=== PATIENT | female | born 1995 | race Caucasian/White ===

== ENCOUNTER 2022-03-18 21:15 | Emergency (ER) | payer SELFPAY ==
[~2022-03-18] VITALS: Ht 165.1 cm; Wt 101.9 kg
[2022-03-18 21:30] VITALS: BP 139/85
--- NOTE | 2022-03-18 21:51 | ED Neurological Problem ---
General Chief Complaint: Neurological Problems Stated Complaint: LEFT SIDE FACE AND BODY NUMBNESS,TIGHTNESS IN CHES Source: patient Exam Limitations: no limitations (BHAVNA HERNANDEZ) History of Present Illness Date Seen by Provider: Mar 18, 2022 Time Seen by Provider: 21:48 Initial Comments Patient is a 26-year-old female history of GERD, Anxiety, Depression, Migraines, central sleep apnea, who presents to the ED with little left-sided chest pain, left-sided numbness and weakness over the past 3 days. She reports acute onset. Pain to the left side of her head rates 8 out of 10. She reports numbness and tingling to the left arm and left leg developed when her head pain started. Denies worse headache of her life. Patient states she was diagnosed with COVID early February. She states she had some flulike symptoms but that continued to improve and then she started getting short of breath with a cough. She Was placed on a taper steroid and scheduled to take her last dose tomorrow. She is not currently on antibiotics. She does have a history of migraines and is typically towards the front part of her head. She states today's head pain feels different. She has seen 2 neurologists and receives Botox for her migraines. She reports nausea without vomiting or diarrhea. She developed left-sided chest pain that feels deep. She states she does feel short of breath but extremely tired and fatigued. She reports twitching to the left side of her face and left eye. Denies of any visual loss. Not concern for . Denies of any urinary symptoms, fever, neck pain, vomiting, diarrhea, difficulty speaking, notable facial droop, syncope. Patient states with her other migraine she has had some numbness and tingling in her feet but does not typically last this long. She has associated photophobia with todays head pain. (BHAVNA HERNANDEZ) Allergies and Home Medications Allergies Coded Allergies: hydrocodone (Verified Allergy, Unknown, 03/18/22) ondansetron (Verified Allergy, Unknown, 03/18/22) topiramate (Verified Allergy, Unknown, 03/18/22) Patient Home Medication List Home Medication List Reviewed: Yes (BHAVNA HERNANDEZ) Review of Systems Review of Systems Constitutional: No chills, No diaphoresis Eyes: Denies Drainage, Denies Decreased Acuity Ears, Nose, Mouth, Throat: denies ear pain, denies ear discharge Respiratory: cough; No dyspnea on exertion Musculoskeletal: No back pain, No joint pain Skin: No change in color, No change in hair/nails (BHAVNA HERNANDEZ) All Other Systems Reviewed Negative Unless Noted: Yes (BHAVNA HERNANDEZ) Physical Exam Vital Signs Vital Signs - First Documented 03/18/22 21:30 Temp 36.0 Pulse 109 Resp 16 B/P (MAP) 139/85 (103) Pulse Ox 97 O2 Delivery Room Air (CLAY,YURI K DO) Vital Signs Capillary Refill : (BHAVNA HERNANDEZ) Height, Weight, BMI Height: '" Weight: lbs. oz. kg; BMI Method: General Appearance: WD/WN, no apparent distress HEENT: PERRL/EOMI, normal ENT inspection, TMs normal, pharynx normal Neck: non-tender, full range of motion, supple, normal inspection Gastrointestinal: normal bowel sounds, non tender, soft, no organomegaly Back: normal inspection, no CVA tenderness, no vertebral tenderness Extremities: non-tender, normal inspection, no pedal edema Neurologic/Psychiatric: pail bailer II-XII nml as tested, no motor/sensory deficits, alert, normal mood/affect (BHAVNA HERNANDEZ) Stroke Onset of Symptoms Date of Onset of Symptoms: Mar 16, 2022 Time of Symptom Onset: 13:00 Onset of Symptoms: Yes (BHAVNA HERNANDEZ) NIH Stroke Scale Assessment Select: Initial Level of Consciousness: 0=Alert (0), Level of Consciousness- Questions: 0=Answers both month/age (0), LOC Commands: 0=Performs both tasks (0), Gaze: Normal (0), Visual Culp: 0=No visual loss (0), Facial Movement (Facial Paresis): 0=Normal symmetrical mnt (0), Motor Function-Arms Right: 0=No drift (0), Motor Function-Arms Left: 1=Drift (1), Motor Function-Legs Right: 0=No drift (0), Motor Function-Legs Left: 1=Drift (1), Limb Ataxia: 1=Present in one limb (1), Sensory: 0=Normal:no loss (0), Best Language: 0=No aphasia (0), Dysarthria: 0=Normal (0), Extinction & Inattention: 0=No abnormality (0), Total: 3 Progress/Results/Core Measures Results/Orders Lab Results Laboratory Tests Test 03/18/22 21:50 03/18/22 22:00 03/18/22 22:43 Range/Units Urine Color YELLOW Urine Clarity CLEAR Urine pH 5.0 5-9 Urine Specific Harmony >=1.030 1.016-1.022 Urine Protein NEGATIVE NEGATIVE Urine Glucose (UA) NEGATIVE NEGATIVE Urine Ketones NEGATIVE NEGATIVE Urine Nitrite NEGATIVE NEGATIVE Urine Bilirubin NEGATIVE NEGATIVE Urine Urobilinogen 0.2 < = 1.0 MG/DL Urine Leukocyte Esterase NEGATIVE NEGATIVE Urine RBC (Auto) NEGATIVE NEGATIVE Urine RBC NONE /HPF Urine WBC 2-5 /HPF Urine Squamous Epithelial Cells 5-10 /HPF Urine Crystals NONE /LPF Urine Bacteria FEW H /HPF Urine Casts PRESENT /LPF Urine Hyaline Casts 5-10 H /LPF Urine Mucus SMALL H /LPF Urine Culture Indicated YES Urine Test NEGATIVE NEGATIVE Prothrombin Time 12.3 12.2-14.7 SEC INR Comment 0.9 0.8-1.4 Activated Partial Thromboplast Time 25 24-35 SEC D-Dimer <= 0.27 0.00-0.49 UG/ML Sodium Level 141 135-145 MMOL/L Potassium Level 4.8 3.6-5.0 MMOL/L Chloride Level 109 H 98-107 MMOL/L Carbon Dioxide Level 17 L 21-32 MMOL/L Anion Gap 15 H 5-14 MMOL/L Blood Urea Nitrogen 20 H 7-18 MG/DL Creatinine 0.96 0.60-1.30 MG/DL Estimat Glomerular Filtration Rate 84 BUN/Creatinine Ratio 21 Glucose Level 115 H 70-105 MG/DL Calcium Level 9.2 8.5-10.1 MG/DL Corrected Calcium 9.3 8.5-10.1 MG/DL Magnesium Level 2.2 1.6-2.4 MG/DL Total Bilirubin 0.2 0.1-1.0 MG/DL Aspartate Amino Transf (AST/SGOT) 16 5-34 U/L Alanine Aminotransferase (ALT/SGPT) 8 0-55 U/L Alkaline Phosphatase 90 40-136 U/L Troponin I < 0.028 <0.028 NG/ML Total Protein 7.7 6.4-8.2 GM/DL Albumin 3.9 3.2-4.5 GM/DL White Blood Count 17.7 H 4.3-11.0 10^3/uL Red Blood Count 4.17 3.80-5.11 10^6/uL Hemoglobin 12.1 11.5-16.0 g/dL Hematocrit 38 35-52 % Mean Corpuscular Volume 92 80-99 fL Mean Corpuscular Hemoglobin 29 25-34 pg Mean Corpuscular Hemoglobin Concent 32 32-36 g/dL Red Cell Distribution Width 14.3 10.0-14.5 % Platelet Count 535 H 130-400 10^3/uL Mean Platelet Volume 9.5 9.0-12.2 fL Immature Granulocyte % (Auto) 1 % Neutrophils (%) (Auto) 79 H 42-75 % Lymphocytes (%) (Auto) 13 12-44 % Monocytes (%) (Auto) 7 0-12 % Eosinophils (%) (Auto) 0 0-10 % Basophils (%) (Auto) 1 0-10 % Neutrophils # (Auto) 14.0 H 1.8-7.8 10^3/uL Lymphocytes # (Auto) 2.3 1.0-4.0 10^3/uL Monocytes # (Auto) 1.2 H 0.0-1.0 10^3/uL Eosinophils # (Auto) 0.0 0.0-0.3 10^3/uL Basophils # (Auto) 0.1 0.0-0.1 10^3/uL Immature Granulocyte # (Auto) 0.2 H 0.0-0.1 10^3/uL Neutrophils % (Manual) 83 % Lymphocytes % (Manual) 14 % Monocytes % (Manual) 3 % Band Neutrophils % Blood Morphology Comment NORMAL (YURI WILLIAMSON DO) Medications Given in ED Current Medications Medications Dose Ordered Sig/Belinda Route Start Time Stop Time Status Last Admin Dose Admin Diphenhydramine HCl 25 mg ONCE ONCE IVP 03/18/22 22:45 03/18/22 22:46 DC 03/18/22 23:14 25 MG Iohexol 75 ml ONCE ONCE IV 03/19/22 00:30 03/19/22 00:42 DC 03/19/22 00:31 75 ML Ketorolac Tromethamine 30 mg ONCE ONCE IVP 03/18/22 22:45 03/18/22 22:46 DC 03/18/22 23:13 30 MG Prochlorperazine Edisylate 10 mg ONCE ONCE IV 03/18/22 22:45 03/18/22 22:46 DC 03/18/22 23:14 10 MG Sodium Chloride 100 ml ONCE ONCE IV 03/19/22 00:30 03/19/22 00:42 DC 03/19/22 00:31 80 ML (YURI WILLIAMSON DO) Vital Signs/I&O 03/18/22 21:30 Temp 36.0 Pulse 109 Resp 16 B/P (MAP) 139/85 (103) Pulse Ox 97 O2 Delivery Room Air (YURI WILLIAMSON DO) Progress Progress Note : Progress Note 2300--ASSUMED CARE FROM TEZ HERNANDEZ. CT ANGIOGRAM HEAD/NECK PENDING AT THIS TIME. PT IS SYMPTOM-FREE AT THIS TIME. 0110--PT SIGNING OUT AMA, CT REPORT IS PENDING. PT STATES SHE IS TIRED OF WAITING AND WANTS TO GO HOME, PT IS SYMPTOM-FREE. AMA PAPERS SIGNED. (YURI WILLIAMSON DO) Comment Sinus tachycardia, 107 bpm, QRS duration 89 MS, QTc 389 MS (BHAVNA HERNANDEZ) Departure Communication (PCP) Patient is complaining of left-sided numbness and weakness over the past 3 days acute onset. Patient does not have significant risk factors for stroke. History of central sleep apnea, GERD, migraines. She also has left-sided chest pain. Patient is not a tPA candidate. EKG without evidence of ST elevation or depression. Chest x-ray was unremarkable. Cardiac work-up unremarkable. Patient had an elevated white blood count at 17. She is currently on steroids. Does not appear to be infection related to however recently recovering from COVID. Urinalysis was negative for infection. Chest x-ray was negative for pneumonia. She had COVID early February and had some residual symptoms over the past month and states she has 1 day worth of prednisone that she has been taking for a continuous cough. Checks x-ray did not noted any pneumothorax. Patient had an NIH of 3 secondary to a subtle drift to her left upper and left lower extremity. Very minimal weakness. No facial droop, slurred speech. She is alert and orient x3. Had some mild ataxia to the left limb. Initial CT scan was unremarkable. Due to her current complaints CT angio of the head and neck was ordered. She did have a negative D-dimer. History of migraines but states her migraine typically is located to the front part of her head but she does have some numbness and tingling that does develop in her lower extremities bilateral with previous migraines. During her stay she started having numbness to her right leg. Not confident that this is a stroke however due to her initial complaints I do recommend further with CT angio head and neck. She agreed. Patient was discussed with Dr. WILLIAMSON at 11 PM who took over care pending results. She was given a migraine cocktail if this could be result of a migrain e. The head pain developed at the same time located to the left side of her head. Denies worst headache of her life. She does follow to neurologist and states she has failed multiple medication and receives Botox but has not received Botox for some time. (BHAVNA HERNANDEZ) Impression Primary Impression: Left against medical advice Disposition: 07 AGAINST MEDICAL ADVICE Condition: Against Medical Advice Departure-Patient Inst. Referrals: [facility] (PCP/Family) Primary Care Physician BHAVNA HERNANDEZ Mar 18, 2022 21:50 YURI WILLIAMSON DO Mar 19, 2022 01:09
[2022-03-18 21:57] LABS: BILIRUBIN,URINE NEGATIVE (NEGATIVE); CLARITY,URINE CLEAR; COLOR,URINE YELLOW; GLUCOSE, URINE (UA) NEGATIVE (NEGATIVE); KETONES,URINE NEGATIVE (NEGATIVE); LEUKOCYTE ESTERASE ,URINE NEGATIVE (NEGATIVE); NITRITE,URINE NEGATIVE (NEGATIVE); PROTEIN,URINE NEGATIVE (NEGATIVE)
[2022-03-18 22:21] LABS: ALBUMIN 3.9 GM/DL (3.2-4.5); CHLORIDE 109 MMOL/L (98-107); POTASSIUM 4.8 MMOL/L (3.6-5.0); SODIUM 141 MMOL/L (135-145)
[2022-03-18 22:22] LABS: BACTERIA,URINE FEW /HPF
[2022-03-18 22:23] LABS: CALCIUM 9.2 MG/DL (8.5-10.1)
[2022-03-18 22:24] LABS: GLUCOSE 115 MG/DL (70-105); TOTAL PROTEIN 7.7 GM/DL (6.4-8.2)
[2022-03-18 22:25] LABS: CARBON DIOXIDE 17 MMOL/L (21-32)
[2022-03-18 22:26] LABS: BILIRUBIN,TOTAL 0.2 MG/DL (0.1-1.0)
--- NOTE | 2022-03-18 22:26 | Diagnostic Imaging Report ---
INDICATION: Chest pain. COMPARISON: None. FINDINGS: Single frontal view of the chest demonstrates normal heart size and pulmonary vascularity. The lungs are well aerated and clear. No large pleural effusion or pneumothorax is seen. The visualized osseous structures show no acute abnormalities. IMPRESSION: No acute cardiopulmonary process. Dictated by: Dictated on workstation # [id number]
[2022-03-18 22:27] LABS: ALKALINE PHOSPHATASE 90 U/L (40-136); CREATININE SERUM 0.96 MG/DL (0.60-1.30); GFR ESTIMATED 84
[2022-03-18 22:29] LABS: BUN/CREATININE RATIO 21
[2022-03-18 22:30] LABS: ALANINE AMINOTRANSFERASE 8 U/L (0-55); MAGNESIUM 2.2 MG/DL (1.6-2.4)
--- NOTE | 2022-03-18 22:34 | Diagnostic Imaging Report ---
INDICATION: Migraine. Neural deficit. TECHNIQUE: Routine non contrast-enhanced axial images were obtained from the skull base to the vertex. Auto Exposure Controls were utilized during the CT exam to meet ALARA standards for radiation dose reduction. COMPARISON: None. FINDINGS: The ventricles and cortical sulci are normal in size and contour. There is no midline shift or mass-effect. No acute intra-axial hemorrhage is seen. There are no abnormal areas of increased or decreased density to suggest acute hemorrhage or edema. No extra-axial masses or collections are present. The bony calvarium is intact. The visualized paranasal sinuses are unremarkable. The mastoid air cells are clear. IMPRESSION: No acute intracranial abnormality. No CT evidence of mass, acute infarct or intracranial hemorrhage. Report was called to the [place] [facility] at 10:34 p.m., by irene. Dictated by: Dictated on workstation # [id number]
[2022-03-18] MEDS ORDERED: NS IV 1000 ML 1,000 ML IV STA (22:37)
[2022-03-18 22:41] LABS: FIBRIN DEGRADATION PRODUCTS <= 0.27 UG/ML (0.00-0.49); INR 0.9 (0.8-1.4); PARTIAL THROMBOPLASTIN TIME 25 SEC (24-35); PROTHROMBIN TIME PATIENT 12.3 SEC (12.2-14.7)
[2022-03-18] MEDS ORDERED: PROCHLORPERAZINE 10 MG/2ML INJ (COMPAZINE) IV ONE (22:45)
[2022-03-18] MEDS ORDERED: KETOROLAC 30 MG/ML VIAL IVP ONE (22:45)
[2022-03-18] MEDS ORDERED: diphenhydrAMINE 50 MG/ML INJ (BENADRYL) IVP ONE (22:45)
[2022-03-18 22:49] LABS: BASOPHILS # (AUTO) 0.1 10^3/uL (0.0-0.1); BASOPHILS % (AUTO) 1 % (0-10); EOSINOPHILS % (AUTO) 0 % (0-10); HEMATOCRIT 38 % (35-52); HEMOGLOBIN 12.1 g/dL (11.5-16.0); LYMPHOCYTES # (AUTO) 2.3 10^3/uL (1.0-4.0); LYMPHOCYTES % (AUTO) 13 % (12-44); MEAN CORPUSCULAR HEMOGLOBIN 29 pg (25-34); MEAN CORPUSCULAR HGB CONC 32 g/dL (32-36); MEAN CORPUSCULAR VOLUME 92 fL (80-99); MEAN PLATELET VOLUME 9.5 fL (9.0-12.2); MONOCYTES # (AUTO) 1.2 10^3/uL (0.0-1.0); MONOCYTES % (AUTO) 7 % (0-12); NEUTROPHILS % (AUTO) 79 % (42-75); PLATELET COUNT 535 10^3/uL (130-400); WHITE BLOOD COUNT 17.7 10^3/uL (4.3-11.0)
[2022-03-18 23:07] LABS: LYMPHOCYTES % (MANUAL) 14 %; MONOCYTES % (MANUAL) 3 %; NEUTROPHILS % (MANUAL) 83 %; RBC MORPH NORMAL
[2022-03-19] MEDS ORDERED: NS 100 ML (IVPB) BAG IV ONE (00:30)
[2022-03-19] MEDS ORDERED: IOHEXOL 350 MG/ML 100 ML (OMNIPAQUE 350) VIAL IV ONE (00:30)
[2022-03-19] MEDS ORDERED: HOLD METFORMIN - RECEIVED CONTRAST 20 ML VIAL IV SCH (00:30)
--- NOTE | 2022-03-19 06:41 | Diagnostic Imaging Report ---
PROCEDURE: CT angiography of the head and CT angiography of the neck with and without contrast. TECHNIQUE: Contiguous noncontrast images were obtained from the skull base through the vertex. After intravenous contrast administration, helical CT angiography of the neck was performed. Source data was reformatted into 3D MIP projections. Delayed post contrast acquisition was also obtained. Auto Exposure Controls were utilized during the CT exam to meet ALARA standards for radiation dose reduction. INDICATION: Left weakness and paresthesia. CT A NECK: There is a normal three-vessel branching pattern arising from the aortic arch. Carotid and vertebral arteries are widely patent through the neck. There is no evidence of stenosis or occlusion. No intimal abnormality is seen. There is no evidence of perivascular fluid collection or contrast extravasation. IMPRESSION: 1. No CTA evidence of great vessel abnormality in the neck. CTA HEAD: Anterior, middle and posterior cerebral arteries demonstrate normal appearance. There is no aneurysm or vascular malformation. No stenosis or occlusion is identified. There is no abnormal contrast enhancement. IMPRESSION: 1. No CTA evidence of great vessel abnormality in the head. Dictated by: Dictated on workstation # [id number]
== END 2022-03-19 01:10 | disposition left against medical advice (07) ==
LOC: ER 21:23
DX: R20.0 Anesthesia of skin (principal); R53.1 Weakness; R07.89 Other chest pain; D72.829 Elevated white blood cell count, unspecified; R27.0 Ataxia, unspecified; Z86.16 Personal history of COVID-19; Z91.14 Patient's other noncompliance with medication regimen; Z79.52 Long term (current) use of systemic steroids; Z28.310 Unvaccinated for COVID-19
CPT/HCPCS: 36415; 70450; 70496; 70498; 71045; 80053; 81000; 83735; 84484; 84703; 85007; 85027; 85379; 85610; 85730; 87088; 93005; 93041